=== PATIENT | female | born 1990 | race Caucasian/White ===

== ENCOUNTER → 2023-11-27 17:03 | Outpatient (REF) | payer BC, SELFPAY | LOC: RAD 17:03 | PROVIDERS: ATTENDING PHYSICIAN Internal Medicine Endocrinology, Diabetes & Metabolism; FAMILY PHYSICIAN Nurse Practitioner Family | DX: E06.3 Autoimmune thyroiditis (principal) | CPT/HCPCS: 76536 ==

== ENCOUNTER → 2024-01-20 09:57 | Outpatient (REF) | payer BC, SELFPAY | LOC: WDC 09:57 | PROVIDERS: ATTENDING PHYSICIAN Nurse Practitioner Family; FAMILY PHYSICIAN Nurse Practitioner Family | DX: N61.0 Mastitis without abscess (principal); R21 Rash and other nonspecific skin eruption | CPT/HCPCS: 76642; 77062; 77066 ==